=== PATIENT | female | born 1970 | race African-American/Black ===

== ENCOUNTER 2016-05-12 20:55 | Emergency (ER) | payer MEDICARE, MEDICAID ==
[~2016-05-12] VITALS: Ht 162.6 cm; Wt 97.2 kg
[~2016-05-12 20:55] MED LIST: AMLO5TAB22 PO; COUM10TA PO; ENOX100P SQ; FIORTAB4 PO; HCTZ50TA PO; LORC10TA PO; METO10TA PO; PHEN15CA PO; ZOFR4TAB3 SL
[2016-05-12 21:02] VITALS: BP 111/80; PULSE 94; RESP 16; TEMP 97.8; O2SAT 97
[2016-05-12 22:34] VITALS: BP 111/80; PULSE 94; RESP 18; TEMP 97.8; O2SAT 97
--- NOTE | 2016-05-12 22:42 | PD ---
HPI Chief Complaint: Pain: Acute or Chronic Time Seen by Provider: 22:21 Travel History International Travel<30 days: No Contact w/Intl Traveler<30days: No Traveled to known affect area: No History of Present Illness HPI This 46-year-old female is complaining of pain in her right foot. She hasn't been hurting since yesterday. She does not recall any injury. It hurts to bear weight in fact she says she is not able to bear weight. She has a history of DVT. She is on Coumadin. She had her Coumadin level checked today but does not know the results. His been no fever or chills. 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 Besides being on Coumadin she takes Lovenox when she feels she may be having a problem. She took Lovenox today. PFSH Past Medical History Hx Anticoagulant Therapy: Yes Anemia: Yes Anxiety: Yes Cancer: No Cardiovascular Problems: Yes Chest Pain: Yes Diminished Hearing: No Deep Vein Thrombosis: Yes (left ) Endocrine: No Gastrointestinal Disorders: Yes GERD: Yes Glaucoma: Yes ("RIGHT EYE") Genitourinary: No Headaches: Yes Hypertension: Yes Immune Disorder: No Implanted Vascular Access Dvce: Yes Musculoskeletal: Yes (CHRONIC BACK PAIN) Neurologic: Yes (HYDROCEPHALY) Psychiatric: Yes Reproductive: Yes (LEFT OVARIAN CYST, UTERINE FIBROIDS) Respiratory: Yes (pulmonay emobolism) Integumentary: Yes (HANDS PEELING) Immunizations Current: Yes Migraines: Yes Ulcer: Yes (H-PYLORI) PNEUMOCCOCAL Vaccine (Year): 2 ?: Not : 6 Para: 5 Miscarriage: 0 : 1 Ovarian Cysts: Yes (LT.) Tubal Ligation: Yes Past Surgical History Abdominal Surgery: Yes (LUMBAR PERITONEAL SHUNT PLACED) Arteriovenous Shunt: Yes Gynecologic Surgery: Yes (TUBAL LIGATION) Neurologic Surgery: Yes (PERITONEAL SHUNT) Pacemaker: No Other Surgery: Yes Social History Alcohol Use: No Tobacco Use: No Substance Use: No Allergies-Medications (Allergen,Severity, Reaction): Coded Allergies: Morphine (Unverified Allergy, Intermediate, Itching, 05/12/16) MRI PRECAUTION (Verified Adverse Reaction, Severe, SPETZLER LUMBAR SHUNT VALVE 11/17/10 LRS, 05/12/16) Reported Meds & Prescriptions Reported Meds & Active Scripts Active Reported Amlodipine (Amlodipine Besylate) 5 Mg Tab 5 Mg PO DAILY Coumadin (Warfarin) 10 Mg Tab 10 Mg PO DAILY Triamterene-Hydrochlorothiazide 37.5-25 Mg Cap 1 Cap PO DAILY Phentermine (Phentermine HCl) 15 Mg Cap Reglan (Metoclopramide HCl) 10 Mg Tab 10 Mg PO TIDAC Lortab (Hydrocodone-Acetaminophen) 10-325 Mg Tab 1 Tab PO Q4H PRN Lovenox Inj (Enoxaparin Sodium) 100 Mg/Ml Syr 100 Mg SQ BID Fioricet (Xrdyclfiej-Ajiosprenocwa-Fkqwswnj) 50-300-40 Mg Cap 1 Cap PO Q4H PRN Review of Systems General / Constitutional: No: Fever, Chills Eyes: No: Diploplia, Blurred Vision HENT: No: Headaches, Vertigo Cardiovascular: No: Chest Pain or Discomfort, Palpitations Respiratory: No: Cough Gastrointestinal: No: Nausea Musculoskeletal: Positive: Pain, No: Edema Skin: No Rash Hematologic/Lymphatic: No: Easy Bruising Physical Exam Narrative GENERAL: Well developed female SKIN: Warm and dry. HEAD: Atraumatic. Normocephalic. EYES: Pupils equal and round. No scleral icterus. No injection or drainage. ENT: No nasal bleeding or discharge. Mucous membranes pink and moist. NECK: Trachea midline. No JVD. GASTROINTESTINAL: Abdomen soft, non-tender, nondistended. Hepatic and splenic margins not palpable. MUSCULOSKELETAL: No obvious deformities. No clubbing. No cyanosis. No edema. The right foot is tender in the area of the arch. There is no discernible swelling. There is no pain to compression of the calf or the thigh on the right side or the left side. NEUROLOGICAL: Awake and alert. No obvious cranial nerve deficits. Motor grossly within normal limits. Normal speech. PSYCHIATRIC: Appropriate mood and affect; insight and judgment normal. Data Data Last Documented VS Vital Signs Date Time Temp Pulse Resp B/P Pulse Ox O2 Delivery O2 Flow Rate FiO2 05/12/16 22:37 94 18 05/12/16 22:34 97.8 111/80 97 Orders Foot, Complete ([id number]) (05/12/16 22:29) MDM Medical Decision Making Medical Screen Exam Complete: Yes Emergency Medical Condition: Yes Medical Record Reviewed: Yes Differential Diagnosis Differential includes fracture, tendinitis, musculoskeletal pain Narrative Course Exam is not suspicious for DVT. There is no calf or thigh tenderness. She is tender in the foot and has pain with movement of the foot. X-ray of the foot has been done and is negative. Patient is stable for discharge. She has Lortab 10 at home that she can take for pain. She is on Coumadin so she cannot take anti-inflammatory medicines Diagnosis Primary Impression: Right foot sprain Qualified Code: S93.601A - Right foot sprain, initial encounter Additional Instructions: Take Lortab as needed for pain, keep foot elevated Disposition: 01 DISCHARGE HOME Condition: Stable Edin Fritz MD May 12, 2016 22:42
--- NOTE | 2016-05-12 22:52 | RADHPO ---
EXAM DATE/TIME: 05/12/2016 22:31 [facility] COMPARISON: No previous studies available for comparison. INDICATIONS : Patient states right pain and swelling, no known trauma to area. MEDICAL HISTORY : None. SURGICAL HISTORY : None. ENCOUNTER: Initial ACUITY: 1 day PAIN SCORE: 6/10 LOCATION: Right Foot FINDINGS: Three view examination of the right foot demonstrates no soft tissue swelling, dislocation, or fractu re. The tarsal bones appear intact. The interphalangeal and metatarsophalangeal joints are intact. The calcaneus is intact. Bony mineralization is normal. CONCLUSION: Radiographic appearance of the right foot is within normal limits. Amadeo Serrano MD on May 12, 2016 at 22:50 Board Certified Radiologist. This report was verified electronically.
[2016-05-12] MEDS ORDERED: REGL10TA5 PO (22:54)
[2016-05-12] MEDS ORDERED: PHEN15CA (22:54)
[2016-05-12] MEDS ORDERED: TRIA37.53 PO (22:54)
[2016-05-12] MEDS ORDERED: AMLO5TAB2 PO (22:54)
[2016-05-12] MEDS ORDERED: ENOX100P SQ (22:54)
[2016-05-12] MEDS ORDERED: HYDR-3535 PO (22:54)
[2016-05-12] MEDS ORDERED: BUTA1CAP PO (22:54)
[2016-05-12] MEDS ORDERED: COUM10TA PO (22:54)
== END 2016-05-12 23:51 | disposition home or self-care (01) ==
LOC: PHED 20:55
DX: S93.601A Unspecified sprain of right foot, initial encounter (principal); Z86.718 Personal history of other venous thrombosis and embolism; G93.2 Benign intracranial hypertension; H54.42 Blindness, left eye, normal vision right eye; I10 Essential (primary) hypertension; Z79.01 Long term (current) use of anticoagulants
CPT/HCPCS: 73630; 99283

== ENCOUNTER 2016-11-08 16:35 | Inpatient (IN) | payer MEDICARE, MEDICAID ==
[2016-11-08] VITALS (9 sets, daily range): BP systolic 127–147; BP diastolic 65–88; PULSE 103–119; RESP 16–22; TEMP 99.6–100.7; O2SAT 96–100
[~2016-11-08] VITALS: Ht 162.6 cm; Wt 93.7 kg
[~2016-11-08 16:35] MED LIST changes: +AMLO5TAB2 PO; -AMLO5TAB22 PO; +BUTA1CAP PO; -FIORTAB4 PO; -HCTZ50TA PO; +HYDR-3535 PO; -LORC10TA PO; -METO10TA PO; +PHEN15CA; -PHEN15CA PO; +REGL10TA5 PO; +TRIA37.53 PO; -ZOFR4TAB3 SL
[2016-11-08] MEDS ORDERED: diphenhydrAMINE HCL 50 MG/ML VIAL IVP ONE (16:45)
[2016-11-08] MEDS ORDERED: SODIUM CHLORIDE 0.9% FLUSH 10 ML FLUSH IVF PRN (16:45)
[2016-11-08] MEDS ORDERED: PROCHLORPERAZINE INJ 10 MG/2 ML VIAL IVP ONE (16:45)
[2016-11-08 16:58] LABS: AUTOMATED NEUTROPHIL # 11.8 TH/MM3 (1.8-7.7); BASOPHIL # 0.4 TH/MM3 (0-0.2); BASOPHIL % 2.6 % (0.0-2.0); HEMATOCRIT 33.8 % (35.0-46.0); LYMPH % 5.4 % (9.0-44.0); LYMPHOCYTE # 0.7 TH/MM3 (1.0-4.8); MEAN CORPUSCULAR HEMOGLOBIN 21.2 PG (27.0-34.0); MEAN CORPUSCULAR HGB CONC 30.7 % (32.0-36.0); MONO % 6.6 % (0.0-8.0); NEUT % 85.4 % (16.0-70.0); PLATELET COUNT 356 TH/MM3 (150-450); RED BLOOD COUNT 4.89 MIL/MM3 (4.00-5.30); RED CELL DISTRIBUTION WIDTH 18.2 % (11.6-17.2); WHITE BLOOD COUNT 13.8 TH/MM3 (4.0-11.0)
[2016-11-08 17:03] LABS: HEMO FLAGS AUTO DIFF
--- NOTE | 2016-11-08 17:04 | PD ---
HPI Chief Complaint: Headache Time Seen by Provider: 16:41 Travel History International Travel<30 days: No Contact w/Intl Traveler<30days: No Traveled to known affect area: No History of Present Illness HPI Patient is a 46-year-old female presents emergency department for evaluation of headache and chest pain. Patient states both symptoms started this morning and a fairly severe. Patient fairly somnolent on arrival and this is to the point where it does somewhat limit her history. Per the triage personnel the patient had a lot of difficulty getting out of the car but was able to 10 to herself home. She states that she has a shunt from her head but it's down in her back for swelling of her head but cannot elaborate further. She states she took her normal headache medicine and is followed by Dr. Lira. States the pain is very severe but when she went to bed last night she felt fine. No sick contacts, no foreign travel, states that her's throat is been sore as well. Per review the patient's records she has a lumbar peritoneal shunt for history of pseudotumor cerebri, she's also had history of DVTs in the past seen by Dr. Arcos has been noncompliant on her anticoagulation. PFSH Past Medical History Hx Anticoagulant Therapy: Yes Anemia: Yes Anxiety: Yes Cancer: No Cardiovascular Problems: Yes Chest Pain: Yes Diminished Hearing: No Deep Vein Thrombosis: Yes (left ) Endocrine: No Gastrointestinal Disorders: Yes GERD: Yes Glaucoma: Yes ("RIGHT EYE") Genitourinary: No Headaches: Yes Hypertension: Yes Immune Disorder: No Implanted Vascular Access Dvce: Yes Musculoskeletal: Yes (CHRONIC BACK PAIN) Neurologic: Yes (HYDROCEPHALY) Psychiatric: Yes Reproductive: Yes (LEFT OVARIAN CYST, UTERINE FIBROIDS) Respiratory: Yes (pulmonay emobolism) Integumentary: Yes (HANDS PEELING) Immunizations Current: Yes Migraines: Yes Ulcer: Yes (H-PYLORI) PNEUMOCCOCAL Vaccine (Year): 2 : 6 Para: 5 Miscarriage: 0 : 1 Ovarian Cysts: Yes (LT.) Tubal Ligation: Yes Past Surgical History Abdominal Surgery: Yes (LUMBAR PERITONEAL SHUNT PLACED) Arteriovenous Shunt: Yes Gynecologic Surgery: Yes (TUBAL LIGATION) Neurologic Surgery: Yes (PERITONEAL SHUNT) Pacemaker: No Other Surgery: Yes Social History Alcohol Use: No Tobacco Use: No Substance Use: No Allergies-Medications (Allergen,Severity, Reaction): Coded Allergies: morphine (Unverified Allergy, Severe, Itching, 11/08/16) MRI PRECAUTION (Verified Adverse Reaction, Severe, SPETZLER LUMBAR SHUNT VALVE 11/17/10 LRS, 11/08/16) Reported Meds & Prescriptions Reported Meds & Active Scripts Active Reported Coumadin (Warfarin) 10 Mg Tab 10 Mg PO DAILY Triamterene-Hydrochlorothiazide 37.5-25 Mg Cap 1 Cap PO DAILY Phentermine (Phentermine HCl) 15 Mg Cap Reglan (Metoclopramide HCl) 10 Mg Tab 10 Mg PO TIDAC Lortab (Hydrocodone-Acetaminophen) 10-325 Mg Tab 1 Tab PO Q4H PRN Fioricet (Ydnucjdmdl-Gzuiriykrppse-Sbptpses) 50-300-40 Mg Cap 1 Cap PO Q4H PRN Review of Systems ROS Limitations: Altered Mental Status Physical Exam Narrative GENERAL: Well-developed well-nourished, somewhat dramatic possibly mildly altered. Appears to be in significant discomfort in her head. SKIN: Focused skin assessment warm/dry. HEAD: Atraumatic. Normocephalic. EYES: Pupils equal and round. No scleral icterus. No injection or drainage. ENT: No nasal bleeding or discharge. Mucous membranes pink and moist. NECK: Trachea midline. No JVD. Kernig's and Brudzinski signs are negative. Patient does have significant tenderness when she attempts to bring her chin down to her chest. CARDIOVASCULAR: Regular rate and rhythm. No murmur appreciated. RESPIRATORY: No accessory muscle use. Clear to auscultation. Breath sounds equal bilaterally. GASTROINTESTINAL: Abdomen soft, non-tender, nondistended. Hepatic and splenic margins not palpable. MUSCULOSKELETAL: No obvious deformities. No clubbing. No cyanosis. No edema. NEUROLOGICAL: Awake and alert and oriented, somnolent, follows commands in all 4 extremities, weak possibly secondary to poor effort in all 4 extremities and equal bilaterally. PSYCHIATRIC: Appropriate mood and affect; insight and judgment normal. Data Data Last Documented VS Vital Signs Date Time Temp Pulse Resp B/P (MAP) Pulse Ox O2 Delivery O2 Flow Rate FiO2 11/08/16 18:35 105 18 133/69 (90) 100 Room Air 11/08/16 17:05 100.6 Orders Orders Complete Blood Count With Diff (11/08/16 16:41) Comprehensive Metabolic Panel (11/08/16 16:41) Westergren Sedimentation Rate (11/08/16 16:41) C-Reactive Protein (Crp) (11/08/16 16:41) Prothrombin Time / Inr (Pt) (11/08/16 16:41) Act Partial Throm Time (Ptt) (11/08/16 16:41) Ecg Monitoring (11/08/16 16:41) Iv Access Insert/Monitor (11/08/16 16:41) Oximetry (11/08/16 16:41) Sodium Chloride 0.9% Flush (Ns Flush) (11/08/16 16:45) Prochlorperazine Inj (Compazine Inj) (11/08/16 16:45) Diphenhydramine Inj (Benadryl Inj) (11/08/16 16:45) Shunt Series (11/08/16 ) Ct Brain W/O Iv Contrast(Rout) (11/08/16 ) Beta Hcg (Quant/Titer) (11/08/16 16:42) Troponin I (11/08/16 16:42) Acetaminophen (Tylenol) (11/08/16 17:15) Sodium Chlor 0.9% 1000 Ml Inj (Ns 1000 M (11/08/16 17:15) Influenzae A/B Antigen (11/08/16 17:11) Blood Gas Venous (Vbg) (11/08/16 17:38) Blood Culture (11/08/16 17:38) Lactic Acid (11/08/16 17:38) Vancomycin Inj (Vancomycin Inj) (11/08/16 17:45) Ceftriaxone Inj (Rocephin Inj) (11/08/16 17:45) Isolation 08,20 (11/08/16 18:31) Electrocardiogram (11/08/16 16:42) Admit Order (Ed Use Only) (11/08/16 ) Vital Signs (Adult) .On admission (11/08/16 19:21) Notify Radiology (11/08/16 19:21) Csf Cell Count + Differential (11/08/16 19:21) Glucose, Csf (11/08/16 19:21) Total Protein, Csf (11/08/16 19:21) Csf Culture And Gram Stain (11/08/16 19:21) Place In Observation (11/08/16 ) Vital Signs (Adult) Q4H (11/08/16 19:19) Activity Oob With Assistance (11/08/16 19:19) Ent Consultant / Telemetry .CONTINUOUS (11/08/16 19:19) Sodium Chloride 0.9% Flush (Ns Flush) (11/08/16 19:30) Sodium Chloride 0.9% Flush (Ns Flush) (11/08/16 21:00) Basic Metabolic Panel (Bmp) (11/09/16 06:00) Complete Blood Count With Diff (11/09/16 06:00) Prothrombin Time / Inr (Pt) (11/09/16 06:00) Case Management Consult (11/08/16 19:19) Naloxone Inj (Narcan Inj) (11/08/16 19:30) Labs Laboratory Tests Test 11/08/16 16:50 11/08/16 17:50 11/08/16 17:55 White Blood Count 13.8 TH/MM3 Red Blood Count 4.89 MIL/MM3 Hemoglobin 10.4 GM/DL Hematocrit 33.8 % Mean Corpuscular Volume 69.0 FL Mean Corpuscular Hemoglobin 21.2 PG Mean Corpuscular Hemoglobin Concent 30.7 % Red Cell Distribution Width 18.2 % Platelet Count 356 TH/MM3 Mean Platelet Volume 7.8 FL Neutrophils (%) (Auto) 85.4 % Lymphocytes (%) (Auto) 5.4 % Monocytes (%) (Auto) 6.6 % Eosinophils (%) (Auto) 0.0 % Basophils (%) (Auto) 2.6 % Neutrophils # (Auto) 11.8 TH/MM3 Lymphocytes # (Auto) 0.7 TH/MM3 Monocytes # (Auto) 0.9 TH/MM3 Eosinophils # (Auto) 0.0 TH/MM3 Basophils # (Auto) 0.4 TH/MM3 CBC Comment AUTO DIFF Differential Comment AUTO DIFF CONFIRMED Ovalocytes 2+ Erythrocyte Sedimentation Rate 61 mm/hr Prothrombin Time 10.7 SEC Prothromb Time International Ratio 1.0 RATIO Activated Partial Thromboplast Time 26.6 SEC Blood Urea Nitrogen 7 MG/DL Creatinine 0.92 MG/DL Random Glucose 98 MG/DL Total Protein 8.8 GM/DL Albumin 3.5 GM/DL Calcium Level 9.0 MG/DL Alkaline Phosphatase 92 U/L Aspartate Amino Transf (AST/SGOT) 24 U/L Alanine Aminotransferase (ALT/SGPT) 27 U/L Total Bilirubin 0.2 MG/DL Sodium Level 134 MEQ/L Potassium Level 3.7 MEQ/L Chloride Level 100 MEQ/L Carbon Dioxide Level 24.0 MEQ/L Anion Gap 10 MEQ/L Estimat Glomerular Filtration Rate 79 ML/MIN Troponin I LESS THAN 0.02 NG/ML C-Reactive Protein 5.50 MG/DL Human Chorionic Gonadotropin, Quant LESS THAN 1 MIU/ML Blood Gas Puncture Site AC Blood Gas Patient Temperature 98.6 Venous Blood pH 7.43 Venous Blood Partial Pressure CO2 41 mmHg Venous Blood Partial Pressure O2 20 mmHg Venous Blood HCO3 27 mmol/L Venous Blood Oxygen Saturation 21 % Venous Blood Oxygen Content 3.1 Vol % Venous Blood Base Excess 2.9 mmol/L Oxygen Delivery Device ROOM AIR Blood Gas Inspired Oxygen 21 % Lactic Acid Level 1.6 mmol/L MDM Medical Decision Making Medical Screen Exam Complete: Yes Emergency Medical Condition: Yes Differential Diagnosis sepsis, meningitis, acute recurrent headache, shunt malfunction, pseudotumor cerebri. Narrative Course patient roomed emergency department, noted to be febrile and has an elevated white blood cell count, index of suspicion for meningitis is slowly on the rise in this patient. She was given Benadryl and Compazine and is now sleepy however when she is a row she states the headache is still severe. I recommended that she have a lumbar puncture. The patient was discussed with Dr. Lira first given her history of lumboperitoneal shunt and Dr. Lira states that it is okay to proceed as if she did not even have a shunt. Unfortunately a lumbar puncture was unsuccessful second of patient cooperation, pain and body habitus. She was started on beta mycin and Rocephin. Discussed with Dr. Georges for admission. The patient was also discussed with Dr. Garcia for IR guided lumbar puncture in the morning. Orders been placed for that. Procedures Procedure Narrative LUMBAR PUNCTURE: After informed consent was bent his competitions and alternatives were discussed with the patient she verbally consented. She is fairly somnolent after Benadryl and Compazine did verbalize understanding and agreement. She was unable to physically sign a consent form. The patient was placed in the left lateral decubitus position. The lumbar area of the back was prepped with Betadine and sterilely draped. The L3 -- L4 interspace was infiltrated with 1% lidocaine plain. Number 20 gauge LP needle was placed into the spinous ligament and the patient did have some radicular symptoms despite this and adjusting tachypneic causing for patient comfort she was unable to tolerate the procedure 2 attempts were made unsuccessful to obtain CSF. Patient has had no untoward events. Neurologically intact. Diagnosis Primary Impression: Sepsis Additional Impression: Headache Admitting Information Admitting Physician Requests: Admit Condition: Stable Freedom Perry MD Nov 08, 2016 17:04
[2016-11-08 17:08] LABS: CHLORIDE 100 MEQ/L (98-107); POTASSIUM 3.7 MEQ/L (3.5-5.1); SODIUM (NA) 134 MEQ/L (136-145)
[2016-11-08 17:11] LABS: ANION GAP 10 MEQ/L (5-15); BLOOD UREA NITROGEN 7 MG/DL (7-18)
[2016-11-08 17:14] LABS: ALT (GPT) 27 U/L (10-53); AST (GOT) 24 U/L (15-37); GLOMERULAR FILTRATION RATE 79 ML/MIN (>89)
[2016-11-08] MEDS ORDERED: SODIUM CHLOR 0.9% 1000 ML INJ 1,000 ML IV ONE (17:15)
[2016-11-08] MEDS ORDERED: ACETAMINOPHEN 500 MG CPLT PO ONE (17:15)
[2016-11-08 17:16] LABS: APTT (PATIENT) 26.6 SEC (24.3-30.1); PROTHROMBIN TIME - PATIENT 10.7 SEC (9.8-11.6); TOTAL BILIRUBIN ADULT 0.2 MG/DL (0.2-1.0)
[2016-11-08 17:17] LABS: ALKALINE PHOSPHATASE 92 U/L (45-117)
[2016-11-08 17:40] LABS: OVALOCYTES 2+ (NORMAL)
--- NOTE | 2016-11-08 17:40 | RADRPT ---
EXAM DATE/TIME: 11/08/2016 17:25 [facility] COMPARISON: CT BRAIN W/O CONTRAST, May 19, 2013, 1:30. INDICATIONS : Severe headache. RADIATION DOSE: 59.19 CTDIvol (mGy) MEDICAL HISTORY : Deep venous thrombosis. Hypertension. Hydrocephalus. Anticoagulant therapy. SURGICAL HISTORY : Tubal ligation. Peritoneal shunt. ENCOUNTER: Initial ACUITY: 1 day PAIN SCALE: 10/10 LOCATION: cranial TECHNIQUE: Multiple contiguous axial images were obtained of the head. Using automated exposure control and adj ustment of the mA and/or kV according to patient size, radiation dose was kept as low as reasonably a chievable to obtain optimal diagnostic quality images. DICOM format image data is available electro nically for review and comparison. FINDINGS: CEREBRUM: The ventricles are normal for age. No evidence of midline shift, mass lesion, hemorrhage or acute in farction. No extra-axial fluid collections are seen. POSTERIOR FOSSA: The cerebellum and brainstem are intact. The 4th ventricle is midline. The cerebellopontine angle i s unremarkable. EXTRACRANIAL: The visualized portion of the orbits is intact. SKULL: The calvaria is intact. No evidence of skull fracture. CONCLUSION: Normal examination. Amadeo Garcia MD on November 08, 2016 at 17:37 Board Certified Radiologist. This report was verified electronically.
[2016-11-08 17:41] LABS: SCAN/DIFF AUTO DIFF CONFIRMED
[2016-11-08] MEDS ORDERED: VANCOMYCIN INJ 1,000 MG in SODIUM CHLOR 0.9% 250 ML INJ 250 ML IV ONE (17:45)
[2016-11-08] MEDS ORDERED: cefTRIAXone INJ 2,000 MG in SODIUM CHLORIDE 0.9% INJ 100 ML IV ONE (17:45)
[2016-11-08 17:52] LABS: BLOOD GAS VENOUS BASE EXCESS 2.9 mmol/L (-2-2); BLOOD GAS VENOUS HCO3 27 mmol/L (22-26); BLOOD GAS VENOUS O2 CONTENT 3.1 Vol % (9.0-17.0); BLOOD GAS VENOUS O2 HGB SAT 21 % (70-76); BLOOD GAS VENOUS PCO2 41 mmHg (44-48); BLOOD GAS VENOUS PO2 20 mmHg (35-40); BLOOD GAS VENOUS pH 7.43 (7.360-7.400); CRITICAL VALUE YES; DRAW SITE AC; FIO2 21 %; OXYGEN DEVICE ROOM AIR; STAT YES; TEMP CORR TO 98.6
[2016-11-08 17:53] LABS: BETA HCG QUANT LESS THAN 1 MIU/ML (0-5)
--- NOTE | 2016-11-08 17:57 | RADRPT ---
EXAM DATE/TIME: 11/08/2016 16:45 [facility] COMPARISON: No previous studies available for comparison. INDICATIONS : Headaches, pain throughout body starting today MEDICAL HISTORY : Hypertension. Gastroesophageal reflux disease. Deep venous thrombosis.PE, ulcer, left ovarian cyst, u terine fibroids SURGICAL HISTORY : Tubal ligation. av shunt ENCOUNTER: Initial ACUITY: 1 day PAIN SCORE: 10/10 LOCATION: Bilateral entire body FINDINGS: Radiograph of the skull, neck, chest and abdomen performed to evaluate shunt patency. No shunt mell ter is seen about the head or neck.. No shunt coursing about the chest. In the abdomen, there is tubing which coils in the midline and right hypogastric region. No dilated loops of small large bowel. CONCLUSION: The only tubing seen is within the abdomen, centrally and on the right side. Kane Estrada MD on November 08, 2016 at 17:51 Board Certified Radiologist. This report was verified electronically.
[2016-11-08] MEDS ORDERED: Vancomycin Consult Pharmacy 1 EA OTHER SCH (19:30)
[2016-11-08] MEDS ORDERED: SODIUM CHLORIDE 0.9% FLUSH 10 ML FLUSH IV FLUSH PRN (19:30)
[2016-11-08] MEDS ORDERED: NALOXONE HCL 0.4 MG/ML AMP IV PRN (19:30)
[2016-11-08] MEDS: SODIUM CHLORIDE 0.9% FLUSH 10 ML FLUSH IV FLUSH SCH (22:23)
[2016-11-09] VITALS: BP 137/77; PULSE 105; RESP 16; TEMP 99.6; O2SAT 98
[2016-11-09 04:00] VITALS: BP 140/82; PULSE 116; RESP 20; TEMP 102; O2SAT 96
[2016-11-09] MEDS ORDERED: VANCOMYCIN INJ 1,500 MG in SODIUM CHLORID 0.9% 500 ML INJ 500 ML IV SCH (05:00)
[2016-11-09] MEDS ORDERED: cefTRIAXone INJ 2,000 MG in SODIUM CHLORIDE 0.9% INJ 100 ML IV SCH (06:00)
[2016-11-09 06:31] LABS: AUTOMATED NEUTROPHIL # 14.1 TH/MM3 (1.8-7.7); BASOPHIL # 0.6 TH/MM3 (0-0.2); BASOPHIL % 3.3 % (0.0-2.0); EOSINOPHIL % 0.1 % (0.0-4.0); HEMATOCRIT 33.8 % (35.0-46.0); LYMPH % 5.6 % (9.0-44.0); MEAN CELL VOLUME 68.7 FL (80.0-100.0); MEAN CORPUSCULAR HEMOGLOBIN 21.1 PG (27.0-34.0); MEAN CORPUSCULAR HGB CONC 30.8 % (32.0-36.0); MONO % 7.7 % (0.0-8.0); NEUT % 83.3 % (16.0-70.0); PLATELET COUNT 302 TH/MM3 (150-450); RED BLOOD COUNT 4.92 MIL/MM3 (4.00-5.30); RED CELL DISTRIBUTION WIDTH 17.8 % (11.6-17.2)
[2016-11-09 06:34] LABS: HEMO FLAGS AUTO DIFF; POTASSIUM 3.4 MEQ/L (3.5-5.1)
[2016-11-09 06:37] LABS: INTERNATIONAL NORMALIZED RATIO 1.1 RATIO; PROTHROMBIN TIME - PATIENT 11.8 SEC (9.8-11.6)
[2016-11-09 06:38] LABS: BICARBONATE 24.2 MEQ/L (21.0-32.0)
[2016-11-09 06:50] LABS: ACANTHOCYTES OCC (NORMAL)
[2016-11-09 06:51] LABS: KERATOCYTES OCC (NORMAL); OVALOCYTES 1+ (NORMAL); PLATELET ESTIMATE SMEAR NORMAL (NORMAL); PLATELET MORPHOLOGY NORMAL (NORMAL); ROULEAUX PRESENT (NORMAL); SCAN/DIFF AUTO DIFF CONFIRMED
[2016-11-09 08:00] VITALS: BP 129/81; PULSE 90; RESP 17; TEMP 97.7; O2SAT 96
[2016-11-09] MEDS ORDERED: ONDANSETRON HCL 4 MG/2 ML VIAL IVP PRN (08:30)
[2016-11-09] MEDS ORDERED: ACETAMINOPHEN 325 MG TAB PO PRN (08:30)
[2016-11-09] MEDS: SODIUM CHLORIDE 0.9% FLUSH 10 ML FLUSH IV FLUSH SCH (09:00)
[2016-11-09] MEDS ORDERED: ACETAMINOPHEN/HYDROcodone 325 MG/10 MG TAB PO PRN (11:30)
--- NOTE | 2016-11-09 11:34 | HHI.HP ---
[facility] Service [facility] Primary Care Physician Sukhjinder Brown M.D. Admission Diagnosis Fever, possible sepsis Diagnoses: (1) Fever (2) RUBBER CHEMIST (ventriculoperitoneal) shunt status (3) Leukocytosis Travel History International Travel<30 Days: No Contact w/Intl Traveler <30 Da: No Traveled to Known Affected Are: No History of Present Illness This is a 46-year-old female patient with past medical history of hypertension, multiple DVT, pseudotumor cerebri status post lumboperitoneal [place] [address] Lira who presents to the ER yesterday evening complaining of headache, sore throat and chest pain. The patient states the symptoms began yesterday in the morning and started with sore throat and headache. She also felt achy all over. Denies sick contacts. Denies neck pain or stiffness, or photophobia. Denies difficulty swallowing. The emergency department she was found to have a fever with leukocytosis. She was also somewhat somnolent. The emergency department physician was concerned about possible infection of the shunt and so attempted a lumbar puncture which was unsuccessful. Today the patient states that she feels much better. She adamantly refuses a lumbar puncture. The patient feels that she has a cold. She states that she wants to go home and sign out AGAINST MEDICAL ADVICE. The patient was given Rocephin and vancomycin at meningitis doses. No chest x-ray or urinalysis was done in the emergency department. The patient denies dysuria , cough, nausea vomiting or abdominal pain, nor rash. She complains of feeling achy all over and states that she would like some Lortab which she takes at home. She is supposed to be on Coumadin for DVT however her level is subtherapeutic. She claims she is taking this and that her primary care physician Dr. Brown manages her Coumadin levels for her. 10 point review systems otherwise negative. Past Family Social History Past Medical History History of recurrent DVTs Pseudotumor cerebri Hypertension Iron deficiency anemia Noncompliance with Coumadin therapy Past Surgical History Lumboperitoneal drain placed in 2009 Allergies: Coded Allergies: morphine (Unverified Allergy, Severe, Itching, 11/08/16) MRI PRECAUTION (Verified Adverse Reaction, Severe, SPETZLER LUMBAR SHUNT VALVE 11/17/10 LRS, 11/08/16) Family History Hypertension in her parents Social History She denies alcohol tobacco or drug use Physical Exam Vital Signs Vital Signs Date Time Temp Pulse Resp B/P (MAP) Pulse Ox O2 Delivery O2 Flow Rate FiO2 11/09/16 08:00 97.7 90 17 129/81 (97) 96 11/09/16 04:00 102.0 116 20 140/82 (101) 96 11/09/16 00:00 99.6 105 16 137/77 (97) 98 11/08/16 22:00 99.6 105 16 137/77 (97) 98 11/08/16 21:50 103 18 127/71 (89) 96 Room Air 11/08/16 21:30 110 11/08/16 21:28 100.7 110 18 147/82 (103) 98 11/08/16 20:48 100.7 110 18 147/82 (103) 98 Room Air 11/08/16 19:23 110 20 99 Room Air 11/08/16 19:23 110 20 135/88 (104) Room Air 11/08/16 18:35 105 18 133/69 (90) 100 Room Air 11/08/16 17:05 100.6 119 22 140/65 (90) 99 Room Air 11/08/16 16:50 99 Room Air 11/08/16 16:50 119 22 99 Room Air 11/08/16 16:50 100.6 119 22 140/65 (90) 99 Physical Exam GENERAL: Well-nourished, well-developed female patient, nontoxic and in no apparent distress. SKIN: Warm and dry. HEAD: Normocephalic. EYES: No scleral icterus. No injection or drainage. NECK: Supple, trachea midline. No meningeal signs. No JVD or lymphadenopathy. Oropharynx: Patent, mucous membranes are moist, no exudates. she has numerous gold caps over her teeth. CARDIOVASCULAR: Regular rate and rhythm without murmurs, gallops, or rubs. RESPIRATORY: Breath sounds equal and clear to auscultation bilaterally. No accessory muscle use. GASTROINTESTINAL: Abdomen soft, non-tender, nondistended. EXTREMITIES: No cyanosis, or edema. NEUROLOGICAL: Awake, alert, and oriented x 3. Non-focal. Laboratory Laboratory Tests Test 11/08/16 16:50 11/08/16 17:50 11/08/16 17:55 11/09/16 06:15 White Blood Count 13.8 17.0 Red Blood Count 4.89 4.92 Hemoglobin 10.4 10.4 Hematocrit 33.8 33.8 Mean Corpuscular Volume 69.0 68.7 Mean Corpuscular Hemoglobin 21.2 21.1 Mean Corpuscular Hemoglobin Concent 30.7 30.8 Red Cell Distribution Width 18.2 17.8 Platelet Count 356 302 Mean Platelet Volume 7.8 7.8 Neutrophils (%) (Auto) 85.4 83.3 Lymphocytes (%) (Auto) 5.4 5.6 Monocytes (%) (Auto) 6.6 7.7 Eosinophils (%) (Auto) 0.0 0.1 Basophils (%) (Auto) 2.6 3.3 Neutrophils # (Auto) 11.8 14.1 Lymphocytes # (Auto) 0.7 1.0 Monocytes # (Auto) 0.9 1.3 Eosinophils # (Auto) 0.0 0.0 Basophils # (Auto) 0.4 0.6 CBC Comment AUTO DIFF AUTO DIFF Differential Comment AUTO DIFF CONFIRMED AUTO DIFF CONFIRMED Ovalocytes 2+ 1+ Erythrocyte Sedimentation Rate 61 Prothrombin Time 10.7 11.8 Prothromb Time International Ratio 1.0 1.1 Activated Partial Thromboplast Time 26.6 Blood Urea Nitrogen 7 6 Creatinine 0.92 0.78 Random Glucose 98 113 Total Protein 8.8 Albumin 3.5 Calcium Level 9.0 8.7 Alkaline Phosphatase 92 Aspartate Amino Transf (AST/SGOT) 24 Alanine Aminotransferase (ALT/SGPT) 27 Total Bilirubin 0.2 Sodium Level 134 139 Potassium Level 3.7 3.4 Chloride Level 100 104 Carbon Dioxide Level 24.0 24.2 Anion Gap 10 11 Estimat Glomerular Filtration Rate 79 95 Troponin I LESS THAN 0.02 C-Reactive Protein 5.50 Human Chorionic Gonadotropin, Quant LESS THAN 1 Blood Gas Puncture Site AC Blood Gas Patient Temperature 98.6 Venous Blood pH 7.43 Venous Blood Partial Pressure CO2 41 Venous Blood Partial Pressure O2 20 Venous Blood HCO3 27 Venous Blood Oxygen Saturation 21 Venous Blood Oxygen Content 3.1 Venous Blood Base Excess 2.9 Oxygen Delivery Device ROOM AIR Blood Gas Inspired Oxygen 21 Lactic Acid Level 1.6 Platelet Estimate NORMAL Platelet Morphology Comment NORMAL Acanthocytes OCC Rouleau PRESENT Keratocytes OCC Date/Time Source Procedure Growth Status 11/08/16 17:45 Blood Peripheral Aerobic Blood Culture - Preliminary NO GROWTH IN 1 DAY Resulted 11/08/16 17:45 Blood Peripheral Anaerobic Blood Culture - Preliminary NO GROWTH IN 1 DAY Resulted 11/08/16 17:55 Nasal Aspirate Influenza Types A,B Antigen (NANO) - Final NEGATIVE FOR FLU A AND B ANTIGEN.... Complete Result Diagram: 11/09/1615 11/09/16 0615 Imaging Last Impressions Shunt Study (Imaging) 11/08/16 0000 Signed Impressions: Service Date/Time: Tuesday, November 08, 2016 16:45 - CONCLUSION: The only tubing seen is within the abdomen, centrally and on the right side. Kane Estrada MD Head CT 11/08/16 0000 Signed Impressions: Service Date/Time: Tuesday, November 08, 2016 17:25 - CONCLUSION: Normal examination. Amadeo Garcia MD [place] VTE Risk Assessment Caprini VTE Risk Assessment: Mod/High Risk (score >= 2) Caprini Risk Assessment Model Point Value = 1 Point Value = 2 Point Value = 3 Point Value = 5 Age 41-60 Minor surgery BMI > 25 kg/m2 Swollen legs Varicose veins or History of unexplained or recurrent spontaneous Oral contraceptives or hormone replacement Sepsis (< 1 month) Serious lung disease, including pneumonia (< 1 month) Abnormal pulmonary function Acute myocardial infarction Congestive heart failure (< 1 month) History of inflammatory bowel disease Medical patient at bed rest Age 61-74 Arthroscopic surgery Major open surgery (> 45 min) Laparoscopic surgery (> 45 min) Malignancy Confined to bed (> 72 hours) Immobilizing plaster cast Central venous access Age >= 75 History of VTE Family history of VTE Factor V Leiden Prothrombin [id number] Lupus anticoagulant Anticardiolipin antibodies Elevated serum homocysteine Heparin-induced thrombocytopenia Other congenital or acquired thrombophilia Stroke (< 1 month) Elective arthroplasty Hip, pelvis, or leg fracture Acute spinal cord injury (< 1 month) Prophylaxis Regimen Total Risk Factor Score Risk Level Prophylaxis Regimen 0-1 Low Early ambulation 2 Moderate Order ONE of the following: *Sequential Compression Device (SCD) *Heparin 5000 units SQ BID 3-4 Higher Order ONE of the following medications: *Heparin 5000 units SQ TID *Enoxaparin/Lovenox 40 mg SQ daily (WT < 150 kg, CrCl > 30 mL/min) *Enoxaparin/Lovenox 30 mg SQ daily (WT < 150 kg, CrCl > 10-29 mL/min) *Enoxaparin/Lovenox 30 mg SQ BID (WT < 150 kg, CrCl > 30 mL/min) AND/OR *Sequential Compression Device (SCD) 5 or more Highest Order ONE of the following medications: *Heparin 5000 units SQ TID (Preferred with Epidurals) *Enoxaparin/Lovenox 40 mg SQ daily (WT < 150 kg, CrCl > 30 mL/min) *Enoxaparin/Lovenox 30 mg SQ daily (WT < 150 kg, CrCl > 10-29 mL/min) *Enoxaparin/Lovenox 30 mg SQ BID (WT < 150 kg, CrCl > 30 mL/min) AND *Sequential Compression Device (SCD) Assessment and Plan Assessment and Plan -Fever with leukocytosis, possible sepsis. This patient has history of lumboperitoneal shunt placed in 2009 for pseudotumor cerebri. Because of this emergency department physician attempted lumbar puncture which was unsuccessful. Interventional radiology was consulted for lumbar puncture however patient is adamantly refusing despite being counseled on risk of infection and significant comorbidity. I will complete the fever workup by checking her urine and a chest x-ray. However given her symptomatology including sore throat, cannot rule out viral illness. Clinically she does not appear to have meningitis. Patient at this time is stating she would like to go home and wants to sign out AGAINST MEDICAL ADVICE. I counseled her strongly to stay in the hospital we complete the sepsis workup and follow-up blood cultures and professor of counseling her that if she does have a significant underlying infection leaving the hospital AGAINST MEDICAL ADVICE may result in serious repercussions to her health. -Pseudotumor cerebri history with lumboperitoneal shunt placed in 2009. -History of DVTs, noncompliant with Coumadin. Coumadin on hold in case the patient agrees to a lumbar puncture which she currently is adamantly refusing. -Hypertension. Resume home medications. -DVT prophylaxis with SCDs. Marjorie Amezcua MD Nov 09, 2016 11:34
[2016-11-09] MEDS ORDERED: ACETAMIN 325 MG/BUTALBITAL 50 MG/CAFFEINE 40 MG TAB PO PRN (11:45)
[2016-11-09 12:00] VITALS: BP 118/70; PULSE 105; RESP 18; TEMP 99.8; O2SAT 98
--- NOTE | 2016-11-09 12:54 | EKG ---
Date Performed: 11/08/2016 Time Performed: 16:42:38 PTAGE: 46 years EKG: SINUS TACHYCARDIA ABNORMAL RHYTHM ECG PREVIOUS TRACING : 01/14/2015 07.55 DOCTOR: Herson Powers Interpretating Date/Time 11/09/2016 12:48:25
[2016-11-09 13:00] LABS: BLOOD, URINE TRACE (NEG); GLUCOSE,URINE NEG (NEG); KETONE, URINE NEG (NEG); NITRITE,URINE NEG (NEG)
[2016-11-09 13:16] VITALS: RESP 18
[2016-11-09 13:44] LABS: COMMENT (UR) CULT NOT INDICATED; COMMENT2 (UR) MUCOUS PRESENT; CULTURE IF INDICATED CULT NOT INDICATED; METHOD OF COLLECTION CLEAN CATCH; SQUAMOUS EPITHELIAL CELL URINE > 8 /hpf (0-5); URINE COLOR YELLOW (YELLW/STRAW)
--- NOTE | 2016-11-09 15:10 | RADRPT ---
EXAM DATE/TIME: 11/09/2016 13:22 [facility] COMPARISON: CHEST SINGLE AP, November 24, 2015, 22:33. INDICATIONS : Fever. MEDICAL HISTORY : Deep venous thrombosis. Hypertension Hydrocephalus SURGICAL HISTORY : None. Peritoneal shunt ENCOUNTER: Subsequent ACUITY: 2 days PAIN SCORE: 0/10 LOCATION: Bilateral chest FINDINGS: The lungs are clear without infiltrate, nodule, or mass. There is no appreciable pleural effusion fo r technique. Heart and mediastinum are unremarkable. CONCLUSION: No acute cardiopulmonary disease. Ana Dickson MD on November 09, 2016 at 15:09 Board Certified Radiologist. This report was verified electronically.
[2016-11-10] MEDS ORDERED: TRIAMTERENE/HCTZ 37.5 MG/25 MG CAP PO SCH (09:00)
[2016-11-11] MEDS ORDERED: PHARMACY ORDERED LAB ONE (10:45)
== END 2016-11-09 13:55 | disposition left against medical advice (07) | DRG 872 ==
LOC: PHED 16:35 → PHEDA 19:22 → PH3A 21:55 → OBSVTOIN 11-09 08:23
PROVIDERS: ADMIT Family Medicine; ATTEND Family Medicine
PROC: 00JU3ZZ Inspection of Spinal Canal, Percutaneous Approach (ICD-10-PCS; principal; 2016-11-08)
DX: A41.9 Sepsis, unspecified organism (principal); I10 Essential (primary) hypertension; F41.9 Anxiety disorder, unspecified; G93.2 Benign intracranial hypertension; K21.9 Gastro-esophageal reflux disease without esophagitis; H40.9 Unspecified glaucoma; D50.9 Iron deficiency anemia, unspecified; Z86.718 Personal history of other venous thrombosis and embolism; Z91.14 Patient's other noncompliance with medication regimen; Z98.2 Presence of cerebrospinal fluid drainage device
CPT/HCPCS: 70250; 70450; 71010; 72040; 74000; 80048; 80053; 80307; 81001; 82805; 83605; 84484; 84702; 85025; 85610; 85652; 85730; 86140; 87040; 87804; 93005; 96365; 96366; 96375; G0378; J0696; J0780; J1200; J3370; J7030; J7040; J7050

== ENCOUNTER 2017-04-25 20:18 | Emergency (ER) | payer MEDICARE, MEDICAID ==
[~2017-04-25 20:18] MED LIST changes: -AMLO5TAB2 PO; -ENOX100P SQ; -PHEN15CA; +PHEN15CA2
[2017-04-25 20:20] VITALS: BP 148/74; PULSE 84; RESP 16; TEMP 98.6; O2SAT 99
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
[2017-04-25 22:32] VITALS: BP 126/75; PULSE 85; RESP 18; O2SAT 98
[2017-04-25 23:06] LABS: INTERNATIONAL NORMALIZED RATIO 1.2 RATIO
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
[2017-04-25] MEDS ORDERED: HYDR-3580 PO (23:11)
== END 2017-04-25 23:59 | disposition home or self-care (01) ==
LOC: NEPC 20:18
DX: S00.03XA Contusion of scalp, initial encounter (principal); I10 Essential (primary) hypertension; W20.8XXA Other cause of strike by thrown, projected or falling object, initial encounter; Z86.718 Personal history of other venous thrombosis and embolism; Z88.5 Allergy status to narcotic agent; Z79.01 Long term (current) use of anticoagulants
CPT/HCPCS: 70450; 85610; 99283

== ENCOUNTER 2017-05-02 11:20 | Emergency (ER) | payer MEDICARE, MEDICAID ==
[~2017-05-02] VITALS: Ht 162.6 cm; Wt 93.0 kg
[2017-05-02 11:30] VITALS: BP 163/70; PULSE 88; RESP 15; TEMP 98.8; O2SAT 100
[2017-05-02] MEDS ORDERED: DIPH25CA PO (11:57)
--- NOTE | 2017-05-02 11:58 | PD ---
HPI Chief Complaint: Skin Problem Time Seen by Provider: 11:43 Travel History International Travel<30 days: No Contact w/Intl Traveler<30days: No Traveled to known affect area: No History of Present Illness HPI 47-year-old female presents to the emergency department for evaluation of a skin rash that started 4 days ago when she started staying in a room in a hotel. She states her grandson is with her and sleeps in the same bed as her. He has the same rash is her. The patient states the rash is itchy and painful due to scratching. Patient states that symptoms worsen at night. She states she has it on her bilateral arms, lower back and legs. No fevers or chills. Current pain is 7/10 without radiation, burning. Mild severity. No exacerbating or alleviating factors. She has tried calamine lotion without relief. PFSH Past Medical History Hx Anticoagulant Therapy: Yes (coumadin) Anemia: Yes Arthritis: No Asthma: No Autoimmune Disease: No Anxiety: Yes Depression: No Heart Rhythm Problems: No Cancer: No Cardiovascular Problems: Yes (HTN) High Cholesterol: No Chemotherapy: No Chest Pain: Yes Congestive Heart Failure: No COPD: No Cerebrovascular Accident: No Diabetes: No Diminished Hearing: No Deep Vein Thrombosis: Yes (left ) Endocrine: No Gastrointestinal Disorders: Yes GERD: Yes Glaucoma: Yes ("RIGHT EYE") Genitourinary: No Headaches: Yes Hiatal Hernia: No Hypertension: Yes Immune Disorder: No Implanted Vascular Access Dvce: Yes Kidney Stones: No Musculoskeletal: Yes (CHRONIC BACK PAIN) Neurologic: Yes (HYDROCEPHALY) Psychiatric: Yes Reproductive: Yes (LEFT OVARIAN CYST, UTERINE FIBROIDS) Respiratory: Yes (pulmonay emobolism (2016)) Integumentary: Yes (HANDS PEELING) Immunizations Current: Yes Migraines: Yes Radiation Therapy: No Renal Failure: No Sickle Cell Disease: No Sleep Apnea: No Thyroid Disease: No Ulcer: Yes (H-PYLORI) PNEUMOCCOCAL Vaccine (Year): 2 : 6 Para: 5 Miscarriage: 0 : 1 Ovarian Cysts: Yes (LT.) Tubal Ligation: Yes Past Surgical History Abdominal Surgery: Yes (LUMBAR PERITONEAL SHUNT PLACED) AICD: No Arteriovenous Shunt: Yes Ear Surgery: No Endocrine Surgery: No Eye Surgery: No Gynecologic Surgery: Yes (TUBAL LIGATION) Joint Replacement: No Neurologic Surgery: Yes (PERITONEAL SHUNT) Oral Surgery: No Pacemaker: No Other Surgery: Yes Social History Alcohol Use: No Tobacco Use: No Substance Use: No Allergies-Medications (Allergen,Severity, Reaction): Coded Allergies: morphine (Unverified Allergy, Severe, Itching, 05/02/17) MRI PRECAUTION (Verified Adverse Reaction, Severe, SPETZLER LUMBAR SHUNT VALVE 11/17/10 LRS, 05/02/17) Reported Meds & Prescriptions Reported Meds & Active Scripts Active Reported Coumadin (Warfarin) 10 Mg Tab 10 Mg PO DAILY Triamterene-Hydrochlorothiazide 37.5-25 Mg Cap 1 Cap PO DAILY Phentermine (Phentermine HCl) 15 Mg Cap Reglan (Metoclopramide HCl) 10 Mg Tab 10 Mg PO TIDAC Fioricet (Znyhflwyxn-Tegnqkdibamfr-Vpnlstck) 50-300-40 Mg Cap 1 Cap PO Q4H PRN Review of Systems Except as stated in HPI: all other systems reviewed are Neg Physical Exam Narrative GENERAL: Well-nourished, well-developed female patient afebrile. SKIN: Focused skin assessment warm/dry. Patient has erythematous patches to bilateral upper extremities consistent with insect bites. HEAD: Normocephalic. Atraumatic. EYES: No scleral icterus. No injection or drainage. NECK: Supple, trachea midline. No JVD or lymphadenopathy. CARDIOVASCULAR: Regular rate and rhythm without murmurs, gallops, or rubs. RESPIRATORY: Breath sounds equal bilaterally. No accessory muscle use. Lungs sounds clear to auscultation. GASTROINTESTINAL: Abdomen soft, non-tender, nondistended. MUSCULOSKELETAL: No cyanosis, or edema. BACK: Nontender without obvious deformity. No CVA tenderness. Data Data Last Documented VS Vital Signs Date Time Temp Pulse Resp B/P (MAP) Pulse Ox O2 Delivery O2 Flow Rate FiO2 05/02/17 11:30 98.8 88 15 163/70 (101) 100 MDM Medical Decision Making Medical Screen Exam Complete: Yes Emergency Medical Condition: Yes Medical Record Reviewed: Yes Differential Diagnosis Bedbug bites versus insect bites versus scabies versus allergic reaction versus urticaria Narrative Course 47-year-old female presents to the emergency department for evaluation of a rash for 4 days after staying in a hotel room. Patient states the rash is worse at night. Physical exam is consistent with insect bites. Most likely this is due to bed bugs as patient staying in hotel, symptoms worsened tonight and appeared to be from bedbugs on exam. I instructed the patient that she needs to switch hotel rooms. She is to take Benadryl for itching and wash all linens and clothes in hot water. She verbalizes agreement. The patient was discharged in stable condition with instructions, including return instructions and follow up instructions. Diagnosis Primary Impression: Bedbug bite Qualified Codes: W57.XXXA - Bitten or stung by nonvenomous insect and other nonvenomous arthropods, initial encounter Referrals: Primary Care Physician as needed Patient Instructions: Bed Bugs (ED), General Instructions Additional Instructions: Take Benadryl as directed as needed for itching. Wash all clothes and linens in hot water. Follow-up with your primary care physician. Return to the emergency department for any acute worsening of symptoms. Med/Other Pt SpecificInfo: Prescription(s) given Scripts Diphenhydramine (Diphenhydramine) 25 Mg Cap 25 MG PO Q6H Y for ITCHING, #24 CAP 0 Refills Prov: Mago Rodarte 05/02/17 Disposition: 01 DISCHARGE HOME Condition: Stable Mago Rodarte May 02, 2017 11:58
== END 2017-05-02 12:30 | disposition home or self-care (01) ==
LOC: NEPK 11:20
DX: S40.862A Insect bite (nonvenomous) of left upper arm, initial encounter (principal); S40.861A Insect bite (nonvenomous) of right upper arm, initial encounter; S30.860A Insect bite (nonvenomous) of lower back and pelvis, initial encounter; S80.862A Insect bite (nonvenomous), left lower leg, initial encounter; S80.861A Insect bite (nonvenomous), right lower leg, initial encounter; W57.XXXA Bitten or stung by nonvenomous insect and other nonvenomous arthropods, initial encounter; I10 Essential (primary) hypertension; Z86.718 Personal history of other venous thrombosis and embolism; Z79.01 Long term (current) use of anticoagulants
CPT/HCPCS: 99282